=== PATIENT | male | born 1965 | race Caucasian/White ===

== ENCOUNTER 2016-10-14 20:53 | Observation (INO) ==
--- NOTE | 2016-10-14 21:41 | Emergency Department Note ---
Arrival - Arrival Chief Complaint: Eye Stated Complaint: blurred vision ED Nursing Triage Note: Patient to triage c/o blurried vision. He states he was driving to work when his vision became blurry.He states he almost couldn't see at all. Mode of Arrival: Ambulatory Limitations: No Limitations Source: Patient Time Seen by Provider: 10/14/16 21:37 - History of Present Illness HPI Narrative: This 51-year-old white male presents with complaints of development of blurry vision in the left eye while driving and progressive loss of visits to [facility]. He currently states that he is now having return of site only blurry. He denies any headache, chest pain, shortness of breath, nausea, vomiting, history of hypertension, history of diabetes, slurring of speech, focal deficits, nausea, or vomiting. The patient currently appears in no acute medical distress. Onset (ago): minute(s) (Patient presents 30 minutes post onset of symptoms) Allergies/Adverse Reactions: Allergies Allergy/AdvReac Type Severity Reaction Status Date / Time Sulfa (Sulfonamide Allergy SHORTNESS Verified 10/14/16 20:59 Antibiotics) OF BREATH sulfamethoxazole Allergy SHORTNESS Verified 10/14/16 20:59 [From Bactrim] OF BREATH trimethoprim [From Bactrim] Allergy SHORTNESS Verified 10/14/16 20:59 OF BREATH Home Medications: Home Medications Medication Instructions Recorded Confirmed Type No Known Home Medications [No 12/16/14 10/14/16 History Known Home Medications] Review of System - Review of System 12 point system: reviewed and no additional remarkable complaints except as stated - Review of System Constitutional: Present: as per HPI Eyes: Present: as per HPI Respiratory: Present: as per HPI Cardiovascular: Present: as per HPI Gastrointestinal: Present: as per HPI Neurological: Present: as per HPI Medical,Surgical,& Family Hx - Social History Smoking Status: Current every day smoker Frequency of Alcohol Use: None Type of Drug Use: None Exam Physical Examination: GENERAL: Well developed, well nourished white male in no acute distress. HEENT: Normocephalic. No trauma. Moist mucous membranes. EOMI. PERRLA. No visual field loss even with the left eye, fundi benign ENT NML NECK: Supple. No adenopathy. CARDIAC: Regular. No murmurs. Heart rate 58 CHEST: Clear to auscultation. No respiratory distress. O2 sat 97% ABDOMEN: Soft. Nontender. Active bowel sounds. EXTREMITIES: No trauma. Normal ROM. No pedal edema. SKIN: No diaphoresis. No rash. NEURO: Alert. Oriented 3. Motor, sensory, vibratory intact. No focal deficits. Vital Signs: Vital Signs Temperature 98.6 F 10/14/16 20:55 Pulse Rate 58 L 10/14/16 20:55 Respiratory Rate 18 10/14/16 20:55 Blood Pressure 122/76 10/14/16 20:55 O2 Sat by Pulse Oximetry 97 10/14/16 20:55 Course Course Narrative: After completion of workup the patient stated his vision was back to normal however after discussion with Dr. Manzanares we will be keeping the patient for evaluation. - Consultations Consultation #1: Discussed with Dr. Manzanares who felt the most medically safe avenue was to admit for further workup. Consultation #2: Discussed with hospitalist who will admit for further evaluation treatment. Results - Labs CBC & BMP: 10/14/16 21:44 10/14/16 21:44 Labs: I reviewed the lab and noted the normal results - Diagnostic Findings Procedure: Chest x-ray: image reviewed by me, report reviewed by me (No acute disease), CT: image reviewed by me, report reviewed by me (Head: No acute injury ) Disposition Clinical Impression: Amaurosis fugax Case discussed with: patient Disposition: Still a Patient Condition: Guarded Time of Disposition: 22:32
[2016-10-14 21:53] LABS: Basophils # 0.1 10*3/uL (0.0-0.2); Basophils % 0.6 % (0.0-0.8); Eosinophils # 0.1 10*3/uL (0.0-0.87); Eosinophils % 1.6 % (0.00-10.9); Hematocrit 45.2 VOL% (42.0-52.0); Hemoglobin 15.8 GM/DL (14.0-18.0); Immature Granulocytes % 0.5 %; Immature Granulocytes Absolute 0.04 #; Lymphocytes # 3.8 10*3/uL (1.4-4.0); Lymphocytes % 42.6 % (21.2-54.2); Mean Corpuscular Hemoglobin 30 PG (27-34); Mean Corpuscular Volume 86.3 FL (87-102); Mean Platelet Volume 10.6 FL (9.6-12.0); Monocytes # 0.6 10*3/uL (0.11-0.8); Monocytes % 7.2 % (1.7-12.7); Neutrophils # 4.2 10*3/uL (1.4-7.4); Neutrophils % 47.5 % (38.7-73.9); Platelet Count 171 T/CUMM (130-400); Red Blood Count 5.24 MC/CUMM (3.8-5.5); Red Cell Distribution Width 13.1 % (9.3-17.3); White Blood Count 8.9 T/CUMM (4-12)
--- NOTE | 2016-10-14 22:07 | XRay Report ---
History is altered mental status Chest, 2 views The heart is normal in size. The lungs are clear. Impression: No acute pathology seen. PROCEDURE INTERPRETED AT [facility] DEPARTMENT OF RADIOLOGY Final Report Signed by: Dr. Jennifer Leyva
--- NOTE | 2016-10-14 22:07 | CT Report ---
History is mental status changes The ventricles are normal in size No acute intracranial hemorrhage or mass effect seen. No acute cortical stroke seen. There may be some minimal chronic encephalomalacia near the sylvian fissure on the left Impression: No acute intracranial pathology seen The CT exam was performed using one or more of the following dose reduction techniques: Automated exposure control, adjustment of the mA and/or kV according to patient size, or use of iterative reconstruction technique. PROCEDURE INTERPRETED AT [facility] DEPARTMENT OF RADIOLOGY Final Report Signed by: Dr. Jennifer Leyva
[2016-10-14 22:13] LABS: Alanine Aminotransferase 32 U/L (16-61); Albumin 3.6 G/DL (3.4-5.0); Alkaline Phosphatase 67 U/L (45-117); Aspartate Amino Transferase 21 U/L (0-37); Blood Urea Nitrogen 19 MG/DL (7-18); Calcium 8.9 MG/DL (8.5-10.1); Glucose 102 MG/DL (74-106); Osmolality,Calculated 280.4 MOS/KG (273-304); Potassium 3.5 MMOL/L (3.5-5.1); Sodium 140 MMOL/L (136-145); Total Protein 6.8 G/DL (6.4-8.3); Troponin I Only < 0.015 NG/ML (0.00-0.045)
[2016-10-14 22:18] LABS: PT Patient Result 10.8 SECS; Partial Thromboplastin Time 30.8 SECS (0-40)
[2016-10-14] MEDS ORDERED: ONDANSETRON 4 MG/2 ML VIAL IV PRN (22:53)
[2016-10-14] MEDS ORDERED: LABETALOL 20 MG/4 ML SYRINGE IV PRN (22:53)
--- NOTE | 2016-10-14 23:02 | Hospitalist History & Physical ---
Assessment and Plan (1) Amaurosis fugax of left eye Status: Acute Assessment and plan: Case is already been discussed with Dr. Ceci Kunz. We are going to order an MRI of his brain a 2D echo and a carotid ultrasound. Will check a fasting lipid profile and draw serial cardiac enzymes. His EKG did have some early re- pole. He will be placed on a monitor. Patient has no chest pain no shortness of breath no diaphoresis Current Visit: Yes History of Present Illness Chief complaint: Temporary vision loss in left eye History of present illness: Mr. Matson is a 51 year old male with no significant past medical history was in his normal state of health until today. Patient was on his way driving to work. Noticed that he had blurry vision involving his left eye. He did not lose complete vision in this eye. The vision return in 6-7 minutes. His brought him up to our hospital for further evaluation I was consulted to admission. The case was discussed with Dr. Leighton schaefer. He has agreed to see him in the morning. Home Medications Medication Instructions Recorded Confirmed Type No Known Home Medications [No 12/16/14 10/14/16 History Known Home Medications] Allergies Allergy/AdvReac Type Severity Reaction Status Date / Time Sulfa (Sulfonamide Allergy SHORTNESS Verified 10/14/16 20:59 Antibiotics) OF BREATH sulfamethoxazole Allergy SHORTNESS Verified 10/14/16 20:59 [From Bactrim] OF BREATH trimethoprim [From Bactrim] Allergy SHORTNESS Verified 10/14/16 20:59 OF BREATH Medical,Surgical,& Family Hx - Medical History Medical History: noncontributory (none) - Surgical History Surgical History: noncontributory (none) - Family History Family History: Reports;: Family Cancer, Family Diabetes, Family Heart Disease, Family Hematology - Social History Smoking Status: Current every day smoker Frequency of Alcohol Use: None Type of Drug Use: None 12 point system: reviewed and no additional remarkable complaints except as stated Exam - Constitutional Vitals: Period Temp Pulse Resp BP Sys/Garcia Pulse Ox Last 24 Hr 98.6 F 58 18 122/76 97 General appearance: normal weight - Head Head exam: Present: normal inspection - Eye Eye exam: Present: EOMI Pupils: Present: CARRIE - ENT ENT exam: Present: normal exam - Neck Neck exam: Present: normal inspection - Respiratory Respiratory exam: Present: clear to auscultation bilaterally - Cardiovascular Cardiovascular exam: Present: regular rate and rhythm - GI/Abdominal GI/Abdominal exam: Present: normal bowel sounds - Extremities Exam Extremities exam: Present: normal inspection - Back Exam Back exam: Present: normal inspection - Neurological Exam Neurological exam: Present: alert, oriented X3 - Psychiatric Psychiatric exam: Present: normal affect, normal mood - Skin Skin exam: Present: normal color Results - Labs CBC & BMP: 10/14/16 21:44 10/14/16 21:44
[2016-10-15] MEDS: ASPIRIN EC 81 MG TABLET PO SCH ×2 (00:50→09:17)
[2016-10-15] MEDS: ENOXAPARIN 40 MG/0.4 ML SYRINGE SUBCUT SCH ×2 (00:50→20:23)
[2016-10-15 01:34] LABS: Risk Ratio 4.45; VLDL CHOLESTEROL 51.8 MG/DL
--- NOTE | 2016-10-15 05:08 | EKG Report ---
Stationary ECG Study [facility] Test Date: 10/14/2016 10:39:07 PM Pat Name: MOHAMUD PORTILLO Department: Room: 524 Gender: M Insight Leader: EVE : 1965 Requested by: Juan Suarez Order Number: [id number] Reading MD: COREY IVORY Intervals [place] Rate: 46 P: 73 MD: 179 QRS: 79 QRSD: 92 T: 69 QT: 414 QTc: 374 Interpretive Statements SINUS BRADYCARDIA ABN ST-T SUGGEST PRECORDIAL PAIN Electronically Signed On 10-15-16 16:10:57 CDT by COREY IVORY [email or web address]
--- NOTE | 2016-10-15 07:52 | Ultrasound Report ---
US carotid duplex BI Indication: Temporary vision loss. Comparison: None. Technique: Multiple longitudinal and transverse real-time sonographic images of the bilateral carotid arterial systems are obtained with grayscale, spectral, and color Doppler analysis. Findings: Peak systolic velocities within the right CCA, proximal ICA, and distal ICA are 76, 53, and 48 cm/s respectively. Peak systolic velocities within the left CCA, proximal ICA, and distal ICA are 70, 46, and 73 cm/s respectively. ICA/CCA ratios on the right and left are 0.7 and 1.0 respectively. Antegrade flow demonstrated within the bilateral vertebral arteries. Grayscale imaging demonstrates minimal bilateral atherosclerotic plaque. IMPRESSION: No convincing sonographic evidence of significant (50% or greater) narrowing of either cervical internal carotid artery. Indirect NASCET criteria utilized. PROCEDURE INTERPRETED AT [facility] DEPARTMENT OF RADIOLOGY Final Report Signed by: Dr Lex Cooper
--- NOTE | 2016-10-15 08:53 | EKG Report ---
Stationary ECG Study [facility] Test Date: 10/15/2016 8:28:48 AM Pat Name: MOHAMUD PORTILLO Department: Room: 524 Gender: M Brick Mason: DAPHNE : 1965 Requested by: Constantino Bah Order Number: [id number] Jeaneth MD: COREY IVORY Intervals [place] Rate: 44 P: 67 UT: 183 QRS: 68 QRSD: 99 T: 65 QT: 442 QTc: 394 Interpretive Statements SINUS BRADYCARDIA ST ELEVATION, PROBABLY EARLY REPOLARIZATION INTERPRETATION BASED ON A DEFAULT AGE OF 40 YEARS Electronically Signed On 10-15-16 16:13:13 CDT by COREY IVORY [email or web address]
[2016-10-15] MEDS: PANTOPRAZOLE 40 MG TABLET PO SCH (09:17)
[2016-10-15] MEDS: NICOTINE 21 MG/24 HR PATCH TRANSDERM SCH (09:24)
--- NOTE | 2016-10-15 10:57 | Cardiology Consult Note ---
Assessment and Plan - Time spent with patient Time spent with patient: Greater than 30 minutes Time spent discussing smoking cessation with patient: more than 10 minutes (1) Bradycardia Status: Acute Assessment and plan: See plan of care listed below Current Visit: Yes (2) Tobacco abuse Status: Chronic Assessment and plan: See plan of care listed below Current Visit: Yes (3) Amaurosis fugax of left eye Status: Acute Assessment and plan: See plan of care listed below. Current Visit: Yes History of Present Illness - Data of Consult Patient: new to practice Consult date: 10/15/16 Requesting Physician: Constantino Bah Primary care physician: Haley Ortiz - Consult Narrative Reason for consult: bradycardia History of present illness: REFINER OPERATOR: (NEW) DR. BUNN Mr. Matson, 51WM, not previously followed by cardiology. Risk factors include: Tobaccoism. He denies a prior history of hypertension, dyslipidemia, known coronary artery disease, [place]. Mr. Matson presented to the emergency department at [facility] October 14, 2016 after experiencing left eye blurriness, vision changes intermittently. Particularly: When trying to call his MOM on his cell phone, he could only see the letter "O". He tells me he could not see either "M " at all. This lasted approximately 10 minutes and resolved. He has had some mild blurriness during the evening but none this morning. Dr. Manzanares has been consulted. He denies any other symptoms of TIA including hemiparesis, paralysis dysphasia or dysphagia. CT head reveals no acute event. Carotid ultrasound reveals no evidence of significant stenosis. Cardiology was consulted for bradycardia. During the hospital stay, patient has had heart rates ranging from 44 - 58bpm. Around midnight, after he received IV labetalol, his heart rate was noted to be sinus bradycardia 40 bpm per scanned and telemetry strip. EKG reveals early repolarization. Cardiac biomarkers negative. He denies chest pain, heaviness or tightness. He denies shortness of breath. He works at [employer] at [employer] and tells me he can perform these activities without previously mentioned symptoms of angina. He denies a history of hypertension but he does not routinely follow up with a primary care provider. He does not check his blood pressure intermittently. During this hospital stay, his blood pressure has ranged 96-149/46-84. He does not routinely have dizziness, lightheadedness. He occasionally feels a brief heart "flutter". Echocardiogram has been ordered. Crestor, Aspirin has been initiated. (Total cholesterol 147, triglycerides 259, LDL 79, HDL 33.) I will keep patient NPO as he has already had breakfast this morning. I have discussed with Dr. Bunn. I will keep him NPO and order Cardiolite stress testing this morning to evaluate chronotropic response. Per Dr. Bunn, I will also consult ophthalmology for their input. I have discussed this with the family and we will proceed. He may also be a candidate for event monitor at discharge. Dr. Bunn will interpret he is echocardiogram. Will await additional recommendations from Dr. Bunn. ASSESSMENT/PLAN: 1. LEFT EYE VISION CHANGES CONCERNING FOR TIA - Dr. Manzanares has been consulted. ASA, Crestor initiated. 2. SINUS BRADYCARDIA - will continue to follow his telemetry readings, vital signs. See above. 3. TOBACCOISM - greater than 5 minutes was spent today discussing the merits of tobacco cessation. He is wearing nicotine patch. CC: Any Moy MD - Home Medications and Allergies Home Medications: Home Medications Medication Instructions Recorded Confirmed Type No Known Home Medications [No 12/16/14 10/14/16 History Known Home Medications] Allergies/Adverse Reactions: Allergies Allergy/AdvReac Type Severity Reaction Status Date / Time Sulfa (Sulfonamide Allergy SHORTNESS Verified 10/14/16 20:59 Antibiotics) OF BREATH sulfamethoxazole Allergy SHORTNESS Verified 10/14/16 20:59 [From Bactrim] OF BREATH trimethoprim [From Bactrim] Allergy SHORTNESS Verified 10/14/16 20:59 OF BREATH Review of systems: REVIEW OF SYSTEMS: - Constitutional Constitutional: Absent: syncope, anorexia, night sweats - EENT Eyes: Absent: blurry vision, loss of vision, diplopia Ears: Absent: decreased hearing, ear pain, ear discharge - Cardiovascular Cardiovascular: Present: chest pain with exertion, dyspnea on exertion, edema, palpitations. Absent: chest pain with deep breath, claudication, - Respiratory Respiratory: Present: BASHIR, cough. Absent: wheezing, hemoptysis, change in phlegm color - Gastrointestinal Gastrointestinal: Present: constipation. Absent: adbominal pain, hematemesis , hematochezia, melena, change in bowel habits, nausea - Genitourinary Genitourinary: Absent: difficulty urinating, dysuria, urinary hesitancy, flank pain - Musculoskeletal Musculoskeletal: Present: back pain Absent: joint swelling, muscle cramps, muscle weakness - Neurological Neurological: Present: normal gait without frequent falls. Absent: dizziness, hemiparesis - Psychiatric Psychiatric: Absent: anxiety, depression, difficulty concentrating - Endocrine Endocrine: Present: fatigue. Absent: cold intolerance, heat intolerance, polyuria, polyphagia, polydipsia - Hematologic/Lymphatic Hematologic/Lymphatic: Present: easy bruising. Absent: easy bleeding, easy bruisability -Integumentary Integumentary: Absent: lesions, rashes, skin breakdown Medical,Surgical,& Family Hx - Medical History Cardio: No history of: Cardiac Dysrhythmia, CAD, Hypertension, [place], Cardiovascular Problems HEENT: History of: Eye Problem (WEARS GLASSES) Musculoskeletal: No history of: Amputation - Surgical History Thoracic Surgeries: Patient denies;: Organ Transplant, Lobectomy Neurologic Surgeries: Patient denies: Neurologic Surgery Reproductive Surgeries: Patient denies;: Genitourinary Surgery - Family History Family History: Reports;: Family Cancer, Family Diabetes, Family Heart Disease, Family Hematology Denies;: Family Anesthesia Reaction - Social History Smoking Status: Current every day smoker Have you smoked in the last 12 months: Yes Time spent discussing smoking cessation with patient: more than 10 minutes Frequency of Alcohol Use: None Type of Drug Use: None Marital Status: Lives With:: Spouse Functional capacity: independent ambulation Physical Examination Vital Signs Temp Pulse Resp BP Pulse Ox 98.6 F 58 L 18 122/76 97 10/14/16 20:55 10/14/16 20:55 10/14/16 20:55 10/14/16 20:55 10/14/16 20:55 General: [Appears well with no apparent distress.] [Pleasant and cooperative. ] [Appears comfortable.] HEENT: [PERRL, normocephalic, atraumatic. Mucous membranes moist. No jaundice noted. Conjunctiva moist and clear, sclerae anicteric] Neck: No JVD/HJR, no thyromegaly or lymphadenopathy noted. No carotid bruit appreciated Cardiac: [Regular rate and rhythm.] [No obvious murmur, rub or gallop.] Lungs: [Clear to auscultation without accessory muscle use to assist the respiratory pattern.] Not requiring oxygen. Abdomen: Soft, bowel sounds normoactive. Nontender and nondistended. No abdominal bruit or thrill noted. No masses noted. Musculoskeletal: No fluid collection. Decreased range of motion is noted. Extremities: No clubbing, cyanosis noted. [ No edema noted.] Upper extremity pulses 2+. Lower extremity pulses 2+. Capillary refill less than 3 seconds. Skin: No unusual lesions or rashes. No skin breakdown appreciated. Neuro: Awake, alert and oriented 3. Moves all extremities well without hemiparesis or paralysis. No essential tremor is appreciated. Result/EKG - Labs CBC & BMP: 10/14/16 21:44 10/14/16 21:44 Lab Results: I have reviewed the past 24 hour labs Labs: Laboratory Results - last 24 hr 10/14/16 10/14/16 10/14/16 21:30 21:44 21:44 WBC 8.9 RBC 5.24 Hgb 15.8 Hct 45.2 MCV 86.3 L MCH 30 MCHC 35.0 RDW 13.1 Plt Count 171 MPV 10.6 Neut % (Auto) 47.5 Lymph % (Auto) 42.6 Snyder % (Auto) 7.2 Eos % (Auto) 1.6 Baso % (Auto) 0.6 Neut # (Auto) 4.2 Lymph # (Auto) 3.8 Snyder # (Auto) 0.6 Eos # (Auto) 0.1 Baso # (Auto) 0.1 Immature Gran % 0.5 Nucleated RBC % 0.0 Immature Gran # 0.04 Nucleated RBCs # 0.00 INR 1.0 PT Patient/Control Mix 10.8 Circ Anticoag PTT 30.8 Sodium Potassium Chloride Carbon Dioxide Anion Gap BUN Creatinine GFR Calculation BUN/Creatinine Ratio Glucose POC Glucose 99 Calculated Osmolality Calcium Total Bilirubin AST ALT Alkaline Phosphatase Total Creatine Kinase CK-MB (CK-2) Troponin I Total Protein Albumin Globulin Albumin/Globulin Ratio Triglycerides Cholesterol LDL Cholesterol VLDL Cholesterol HDL Cholesterol Heart Disease Risk Ratio 10/14/16 10/15/16 10/15/16 21:44 00:22 00:22 WBC RBC Hgb Hct MCV MCH MCHC RDW Plt Count MPV Neut % (Auto) Lymph % (Auto) Snyder % (Auto) Eos % (Auto) Baso % (Auto) Neut # (Auto) Lymph # (Auto) Snyder # (Auto) Eos # (Auto) Baso # (Auto) Immature Gran % Nucleated RBC % Immature Gran # Nucleated RBCs # INR PT Patient/Control Mix Circ Anticoag PTT Sodium 140 Potassium 3.5 Chloride 106 Carbon Dioxide 24 Anion Gap 13.5 BUN 19 H Creatinine 1.00 GFR Calculation 97 BUN/Creatinine Ratio 19.00 Glucose 102 POC Glucose Calculated Osmolality 280.4 Calcium 8.9 Total Bilirubin 0.40 AST 21 ALT 32 Alkaline Phosphatase 67 Total Creatine Kinase 141 CK-MB (CK-2) < 1.0 Troponin I < 0.015 < 0.015 Total Protein 6.8 Albumin 3.6 Globulin 3.2 Albumin/Globulin Ratio 1.1 Triglycerides 259 H Cholesterol 147 LDL Cholesterol 79.0 VLDL Cholesterol 51.8 HDL Cholesterol 33 L Heart Disease Risk Ratio 4.45 10/15/16 06:25 WBC RBC Hgb Hct MCV MCH MCHC RDW Plt Count MPV Neut % (Auto) Lymph % (Auto) Snyder % (Auto) Eos % (Auto) Baso % (Auto) Neut # (Auto) Lymph # (Auto) Snyder # (Auto) Eos # (Auto) Baso # (Auto) Immature Gran % Nucleated RBC % Immature Gran # Nucleated RBCs # INR PT Patient/Control Mix Circ Anticoag PTT Sodium Potassium Chloride Carbon Dioxide Anion Gap BUN Creatinine GFR Calculation BUN/Creatinine Ratio Glucose POC Glucose Calculated Osmolality Calcium Total Bilirubin AST ALT Alkaline Phosphatase Total Creatine Kinase CK-MB (CK-2) Troponin I < 0.015 Total Protein Albumin Globulin Albumin/Globulin Ratio Triglycerides Cholesterol LDL Cholesterol VLDL Cholesterol HDL Cholesterol Heart Disease Risk Ratio - Diagnostic Findings Procedure: Chest x-ray: report reviewed by me, CT: report reviewed by me (Head) , Ultrasound: report reviewed by me (Carotid) - EKG EKG results: interpreted by me EKG shows: bradycardia
--- NOTE | 2016-10-15 13:43 | Magnetic Resonance Report ---
History: Temporary vision loss Date: 10/15/2016 Study: MRI brain without contrast Comparison exam: CT head October 14, 2016 The brain was imaged in 3 planes on the 1.2 Yolie open magnet without IV contrast, to include diffusion, T2, FLAIR, andT1-weighted sequences. The ventricles are midline in position without evidence of hydrocephalus. There is no Chiari I malformation. There is no gross pituitary mass. There is a small chronic area of ischemia in a left MCA distribution involving the opercular portion of the left frontal lobe, measuring up to 2.5 cm maximum diameter on the sagittal images. There is no evidence of acute ischemia on the diffusion sequence. There is no mass effect or parenchymal hemorrhage. There is no extra-axial hematoma. The superior sagittal sinus is patent. There is no gross flow abnormality in the [place] area. There is no obvious cerebellopontine angle mass. There is some minor mucosal thickening in ethmoid air cells bilaterally. Impression: No acute ischemia or acute intracranial process. Small area of chronic ischemia involving the opercular portion of the left frontal lobe. Mild chronic sinus disease PROCEDURE INTERPRETED AT [facility] DEPARTMENT OF RADIOLOGY Final Report Signed by: Dr. Elayne Hardwick
--- NOTE | 2016-10-15 15:05 | Event Note ---
Patient underwent Cardiolite stress test without difficulty. Patient achieved stage IV Alon protocol before reaching minimal predicted target heart rate. No chest pain, heaviness or tightness. Moderate dyspnea on exertion noted. No ST changes or arrhythmia noted. Now, patient is transitioning to nuclear medicine for final scan. Dr. Bunn to read, interpreted and advise. Echocardiogram was ordered earlier and has already been performed.
--- NOTE | 2016-10-15 15:19 | Hospitalist Progress Note ---
Assessment and Plan (1) Amaurosis fugax of left eye Status: Acute Assessment and plan: Will refer to ophthalmology. Aspirin. Needs to stop smoking. Cholesterol 2 high. Crestor Current Visit: Yes (2) Obstructive sleep apnea Status: Acute Assessment and plan: Consult sleep medicine. Most likely the causes of his bradycardia Current Visit: Yes (3) Abnormal EKG Status: Acute Assessment and plan: Stress test ordered Current Visit: Yes (4) Bradycardia Status: Acute Assessment and plan: Most likely due to obstructive sleep apnea Current Visit: Yes (5) Tobacco abuse Status: Chronic Assessment and plan: Nicotine patch ordered but patient keeps going down to smoke Current Visit: Yes Hospitalist: Subjective Interval history: Patient continues to leave the floor to smoke even though we have asked him not to. We offered him a nicotine patch. Dr. Manzanares has not seen him today. Dr. Bunn has seen him and it done a stress test. I told him unless he stop smoking he will have a stroke. Patient does need to see an brass buffer. Patient never goes to the doctor. Patient snores and wakes up tired. Exam - Constitutional Vitals: Period Temp Pulse Resp BP Sys/Garcia Pulse Ox Last 24 Hr 97.1 F-98.6 F 46-60 16-18 96-149/46-84 93-98 Exam: Heart Rate-[bradycardia] Lungs-[CTAB] GI-[+bs soft, NT] Ext-[no edema] Neuro [Motor 5/5], [alert and oriented times 3] psych [normal mood and affect] General [no acute distress] Results - Labs CBC & BMP: 10/14/16 21:44 10/14/16 21:44 Lab Results: I have reviewed the past 24 hour labs - EKG EKG shows: sinus rhythm (Diffuse ST segment elevation) - Diagnostic Findings Procedure: Chest x-ray: report reviewed by me (COPD), MRI: report reviewed by me (No acute stroke some chronic ischemia in the left frontal lobe), Ultrasound : report reviewed by me (Carotid ultrasound shows no significant stenosis)
--- NOTE | 2016-10-15 15:23 | ECHO Report ---
Matson Liam Exam Date: 10/15/2016 13:17 Referring Physician: Technologist: Daly Cervantes RDCS Age: 51 Ht (in): 70 Wt (lb): 168 Gender: M Exam Location: [facility] Echo Indications: Weakness, Blurred vision BP: 104 / 67 HR: 55 Rhythm: Sinus Technical Quality: Good IMPRESSIONS Normal left ventricular cavity size. Normal left ventricular wall thickness. Left ventricular ejection fraction is estimated at 55 %. The right ventricle is normal in size and function. The right atrium is normal in size. The left atrium is normal in size. Thickened mitral valve. Trace mitral valve regurgitation. Morphologically normal aortic valve without significant sclerosis or stenosis. There is no aortic regurgitation. Morphologically normal tricuspid valve. Trace to mild tricuspid valve regurgitation. Tricuspid regurgitation velocities suggest a PAP of 49 mmHg. Morphologically normal pulmonic valve without significant stenosis. There is no pulmonic regurgitation. Normal pericardium without effusion. Normal ascending aorta dimension. MEASUREMENTS (Male / Female) Normal Values 2D ECHO LV Diastolic Diameter PLAX 3.6 cm 4.2 - 5.9 / 3.9 - 5.3 cm LV Systolic Diameter PLAX 2.2 cm LV Fractional Shortening PLAX 39.0 % IVS Diastolic Thickness 0.9 cm 0.6 - 1.0 / 0.6 - 0.9 cm LVPW Diastolic Thickness 1.0 cm 0.6 - 1.0 / 0.6 - 0.9 cm RV Internal Dim ED PLAX 3.8 cm Aortic Root Diameter 3.3 cm LA Systolic Diameter LX 2.5 cm 3.0 - 4.0 / 2.7 - 3.8 cm DOPPLER TR Peak Velocity 312.0 cm/s TR Peak Gradient 38.9 mmHg FINDINGS Left Ventricle Normal left ventricular cavity size. Normal left ventricular wall thickness. Left ventricular ejection fraction is estimated at 55 %. Right Ventricle The right ventricle is normal in size and function. Right Atrium The right atrium is normal in size. Left Atrium The left atrium is normal in size. Mitral Valve Thickened mitral valve. Trace mitral valve regurgitation. Aortic Valve Morphologically normal aortic valve without significant sclerosis or stenosis. There is no aortic regurgitation. Tricuspid Valve Morphologically normal tricuspid valve. Trace to mild tricuspid valve regurgitation. Tricuspid regurgitation velocities suggest a PAP of 49 mmHg. Pulmonic Valve Morphologically normal pulmonic valve without significant stenosis. There is no pulmonic regurgitation. Pericardium Normal pericardium without effusion. Aorta Normal ascending aorta dimension. Jose Bunn MD (Electronically Signed) Final Date: 15 October 2016 15:22
--- NOTE | 2016-10-15 16:28 | Neurology Consult Note ---
History of Present Illness History of present illness: Mr. Matson is a 51 year old right-handed white gentleman with no significant past medical history except for smoking was in his normal state of health until yesterday. Patient was on his way driving to work. Noticed that he had blurry vision involving his left eye. Patient reported that the vision deficit was partial. When he was looking at things he was missing left visual field in the left eye. He reported that when he was trying to call his "mom" he missed the first M and could only see OM. He did not lose complete vision in this eye. The vision return in 11-12 minutes. His brought him up to our hospital for further evaluation. Patient also reported that he has been having headaches more frequently lately. Headache frequency is 4-5 a week and last for weeks. Headache has gotten worse in last 2-3 months he reported that last year he had 4 episodes characterized by blurred vision in the left eye lasted for couple of minutes and resolved completely. He never sought any medical advice back then because it did not last too long. MRI of the brain, carotid Dopplers are within normal limits. Triglycerides are high at 259. Echocardiogram revealed ejection fraction of 55%. No source of embolism seen Home Medications Medication Instructions Recorded Confirmed Type No Known Home Medications [No 12/16/14 10/14/16 History Known Home Medications] Allergies Allergy/AdvReac Type Severity Reaction Status Date / Time Sulfa (Sulfonamide Allergy SHORTNESS Verified 10/14/16 20:59 Antibiotics) OF BREATH sulfamethoxazole Allergy SHORTNESS Verified 10/14/16 20:59 [From Bactrim] OF BREATH trimethoprim [From Bactrim] Allergy SHORTNESS Verified 10/14/16 20:59 OF BREATH 12 point system: reviewed and no additional remarkable complaints except as stated Medical,Surgical,& Family Hx - Medical History Cardio: No history of: Cardiac Dysrhythmia, CAD, Hypertension, [place], Cardiovascular Problems HEENT: History of: Eye Problem (WEARS GLASSES) Musculoskeletal: No history of: Amputation - Surgical History Thoracic Surgeries: Patient denies;: Organ Transplant, Lobectomy Neurologic Surgeries: Patient denies: Neurologic Surgery Reproductive Surgeries: Patient denies;: Genitourinary Surgery - Family History Family History: Reports;: Family Cancer, Family Diabetes, Family Heart Disease, Family Hematology Denies;: Family Anesthesia Reaction - Social History Smoking Status: Current every day smoker Frequency of Alcohol Use: None Type of Drug Use: None Exam - Constitutional Vitals: Period Temp Pulse Resp BP Sys/Garcia Pulse Ox Last 24 Hr 97.1 F-98.6 F 46-60 16-18 96-149/46-84 93-98 Exam: GENERAL: Patient is in no acute distress. NECK: Neck is supple. There is no JVD. No carotid bruits present. No thyroid masses. CVS: First and second heart sounds are normal. There is no S3 present. Regular rate and rhythm. RESPIRATORY: Lungs are clear to auscultation without any rales or rhonchi. ABDOMEN: Soft and non-tender. Bowel sounds are present. There is no hepatosplenomegaly. EXT: There is no palpable edema. Peripheral pulses are present. Skin: No rashes Central Nervous system: General: Alert, awake and Oriented x 3 Speech: Fluent Comprehension: Intact and normal Facial expressions: Normal Cranial Nerves: CN1/Olfactory: Normal CN II/ Optic: Normal, Visual Varela unreliable CN III, and : CARRIE & EOMI CN V: Normal & intact CN VII: face is symmetric CNVIII: Normal CN XI/X/XI/XII: Intact and Normal Motor: Bulk and Tone is normal. Strength in the right 5/5 Strength in the left 5/5 Sensory: Grossly intact for all the modalities of PP, LT and temp sense Reflexes: 1+ and symmetrical Cerebellar function: Normal finger to nose and heel to turner testing. Toes: Equivocal Gait: Normal heel to heel and toe to toe and tandem walk. Results - Labs CBC & BMP: 10/14/16 21:44 10/14/16 21:44 Assessment and Plan (1) Blurred vision, left eye Status: Acute Assessment and plan: Differential diagnosis included TIA versus complex ocular migraines. Agree with aspirin and Crestor. Add Elavil 25 mg p.o. in the morning Fioricet 1 tablet every 4 to every 6 as needed Okay to go home from neuro standpoint Follow-up in 4 weeks Counseled him regarding cessation of smoke Current Visit: Yes Specialty Discharge - Follow Up or Referrals Follow up with: Rey Manzanares MD [Physician] - 1 Month
[2016-10-15 16:44] LABS: Troponin I Only < 0.015 NG/ML (0.00-0.045)
--- NOTE | 2016-10-15 18:34 | Sleep Medicine Consult ---
Assessment and Plan (1) Obstructive sleep apnea Status: Acute Assessment and plan: This patient certainly could have obstructive sleep apnea though he has never been documented to have obstructive sleep apnea. He does have symptoms of snoring and is well does have symptoms of periodic limb movements. We will not be able to obtain HST tonight and anticipate discharge by tomorrow at the latest. I would recommend outpatient sleep study and this can be done after precertification to the sleep clinic. He may be a candidate for either home sleep study or in lab polysomnography dependent upon his insurance which is [facility]. Thank you for this consult and the opportunity to participate in his care. Current Visit: Yes History of Present Illness Chief complaint: Sleep apnea History of present illness: Mr. Matson is a 51 year old male admitted with transient visual disturbances in his left eye. He has been seen by both cardiology and neurology after admission by the hospitalist service. There has been concern of transient ischemic attack. He has been cleared by neurology for discharge. There is felt to be no source for embolic phenomenon. He does have a history of loud snoring but no history of witnessed apneas. He is bothered by chronic fatigue and sleepiness. His sleep is unrefreshing and associated with nocturia and discomfort and restlessness of his legs. His does describe him as a loud snore. His sleep schedule is irregular. He usually works nights at [employer] 4 nights a week. After work, he will usually get to sleep somewhere between 10 AM and 1 PM and then sleep until 6:56 PM. He may awaken 3-4 times to urinate. Once he is off, he began sleeping at night and feels more refreshed. He has never had sleep evaluation before. Home Medications Medication Instructions Recorded Confirmed Type No Known Home Medications [No 12/16/14 10/14/16 History Known Home Medications] Allergies Allergy/AdvReac Type Severity Reaction Status Date / Time Sulfa (Sulfonamide Allergy SHORTNESS Verified 10/14/16 20:59 Antibiotics) OF BREATH sulfamethoxazole Allergy SHORTNESS Verified 10/14/16 20:59 [From Bactrim] OF BREATH trimethoprim [From Bactrim] Allergy SHORTNESS Verified 10/14/16 20:59 OF BREATH Review of systems: Otherwise unremarkable from a sleep standpoint. Exam (Pulmonay) H&P - Constitutional Vitals: Period Temp Pulse Resp BP Sys/Garcia Pulse Ox Last 24 Hr 97.1 F-98.6 F 46-60 16-18 96-152/46-84 93-99 Exam: He is alert and oriented in no acute distress. Pupils equal round reactive to light and accommodation. Extraocular movements intact. Oropharynx with a class III Mallampati exam with a wide-based uvula. Neck supple without adenopathy or thyromegaly. No supraclavicular adenopathy. Chest with symmetrical breath sounds without focal wheeze, rhonchi, or rales. Cardiac exam reveals a regular rhythm without murmur or gallop. Abdomen soft nontender without palpable hepatosplenomegaly or mass. Extremities are without clubbing, cyanosis, or edema. Neurologically, he is grossly intact. He moves all extremities with good strength. Medical,Surgical,& Family Hx - Medical History Cardio: No history of: Cardiac Dysrhythmia, CAD, Hypertension, [place], Cardiovascular Problems HEENT: History of: Eye Problem (WEARS GLASSES) Musculoskeletal: No history of: Amputation - Surgical History Thoracic Surgeries: Patient denies;: Organ Transplant, Lobectomy Neurologic Surgeries: Patient denies: Neurologic Surgery Reproductive Surgeries: Patient denies;: Genitourinary Surgery - Family History Family History: Reports;: Family Cancer, Family Diabetes, Family Heart Disease, Family Hematology Denies;: Family Anesthesia Reaction - Social History Smoking Status: Current every day smoker Frequency of Alcohol Use: None Type of Drug Use: None Results - Labs CBC & BMP: 10/14/16 21:44 10/14/16 21:44 Lab Results: I have reviewed the past 24 hour labs Labs: Hematocrit is normal. Specialty Discharge - Follow Up or Referrals Follow up with: Rey Manzanares MD [Physician] - 1 Month
[2016-10-15] MEDS ORDERED: ROSUVASTATIN 20 MG TABLET PO SCH (21:00)
--- NOTE | 2016-10-16 02:37 | Nuclear Medicine Report ---
DATE: 10/15/2016 This is an exercise Cardiolite study. The patient underwent an exercise treadmill testing and walked using a modified Alon protocol for 11 minutes to a heart rate of 151, which was 89 percent of his maximal age predicted heart rate. Blood pressure response to exercise was normal. At peak exercise, the patient was given 30 mCi dose of te chnetium complex to Cardiolite. He underwent radionuclide scanning. This was compared to a rest sca n obtained prior to exercise after a 10 mCi dose technetium complex to Cardiolite. Comparing stress and rest imaging, there appeared to be decreased scan activity noted in the anterose ptal septal segments most consistent with an area of attenuation. There was patchy uptake otherwise, but no significant mismatch comparing rest and stress imaging could be identified. This is a poor q uality scan, but is low risk for evidence of underlying ischemic disease. Gated study demonstrates normal left ventricular systolic wall motion with gated ejection fraction ca lculated into the 54 percent range. CONCLUSIONS: 1. POOR QUALITY STUDY WITH PATCHY UPTAKE IN RADIOTRACER, BUT NO GOOD EVIDENCE TO SUGGEST SIGNIFICANT ISCHEMIA OR SCAR IN THIS LOW RISK STUDY AT NEAR MAX EXERCISE. 2. NORMAL LEFT VENTRICULAR SYSTOLIC WALL MOTION. 3. GATED EJECTION FRACTION 54 PERCENT. Procedure performed and interpreted at [facility] Department of Radiology.
[2016-10-16] MEDS ORDERED: AMITRIPTYLINE 25 MG TABLET PO SCH (09:00)
[2016-10-16] MEDS: ASPIRIN EC 81 MG TABLET PO SCH (09:12)
[2016-10-16] MEDS: NICOTINE 21 MG/24 HR PATCH TRANSDERM SCH (09:12)
[2016-10-16] MEDS: PANTOPRAZOLE 40 MG TABLET PO SCH (09:12)
--- NOTE | 2016-10-16 11:01 | Discharge Summary ---
Hospital Course - Hospital Course Hospital Course: 51-year-old male with with no past medical history because he never goes to the doctor presents to the emergency room with blurry vision in his left eye. He does not lose complete vision in this left eye but does lose peripheral vision in it comes and goes. Patient is a smoker and is not on aspirin. Patient also was noted during admission to be bradycardic but asymptomatic. Dr. Garcia was consulted and feels the patient could have obstructive sleep apnea and does need an outpatient sleep study. We were most concerned the patient may be having strokes. Patient has not been to see an underwriting technician and we will set him up to see Dr. Tino Rosen for a detailed exam of his eyes. Dr. Manzanares was consulted. MRI was done and shows no evidence of acute stroke but does have small areas of chronic ischemia in the left frontal lobe. Patient smokes up to 3 packs a day and I have counseled him that he has to stop smoking, but doubt he will comply. He did okay for me to give him some nicotine patches. Ultrasound of his carotid shows no significant stenosis. Cardiology, Dr. Bunn was consulted regarding his bradycardia and a stress test was performed which showed no evidence of ischemia. Total cholesterol is 147, triglycerides 259, LDL 79, HDL 33. Patient's serial troponins were negative. Patient will be discharged home today with follow-up appointments for Dr. Garcia, Dr. Rosen from ophthalmology and Dr. Manzanares from neurology. Patient needs to get a primary care physician. - Time spent with patient Time with patient DS: Less than 30 minutes (25 min) Diagnosis - Discharge Diagnosis (1) Amaurosis fugax of left eye Status: Acute (2) Obstructive sleep apnea Status: Acute (3) Abnormal EKG Status: Acute (4) Bradycardia Status: Acute (5) Tobacco abuse Status: Chronic Specialty Discharge - Follow Up or Referrals Follow up with: Rey Manzanares MD [Physician] - 1 Month (left message to call me back) Discharge Plan - Discharge Data Disposition: Disch To Home/Self Care Condition at Discharge: Stable Discharge Diet: heart healthy Activity: resume usual activities as tolerated Hygiene: no restrictions Weight Bearing at Discharge: full weight bearing Driving: no restrictions - Discharge Medications New Amitriptyline [Elavil] 25 mg PO DAILY #30 tablet Atorvastatin [Lipitor] 20 mg PO BEDTIME #30 tablet Nicotine 21 mg/24 Hr Patch [Nicoderm CQ 21 mg/24 hr Patch] 1 patch TRANSDERM DAILY #42 patch Aspirin EC Tab 81 mg PO DAILY tablet No Action No Known Home Medications [No Known Home Medications] - Follow Up or Referral Follow Up: Rey Manzanares MD [Physician] - 1 Month (left message to call me back) Tino Rosen MD [Physician] - 1 Week Gladys Garcia MD [Physician] - 2 Weeks - Forms/Instructions Instructions: Sleep Apnea Syndrome (DC), How to Stop Smoking (DC), Cigarette Smoking and Your Health (GEN), Bradycardia (DC) Additional Discharge Instructions: needs a primary MD or WORKERS' COMPENSATION CLAIMS EXAMINER Exam - Constitutional Vitals: Period Temp Pulse Resp BP Sys/Garcia Pulse Ox Last 24 Hr 97.2 F-98.3 F 43-61 18-20 110-152/71-82 96-100 General appearance: normal weight, no acute distress - Respiratory Respiratory exam: Present: clear to auscultation bilaterally. Absent: rhonchi, wheezes - Cardiovascular Cardiovascular exam: Present: regular rate and rhythm. Absent: systolic murmur - GI/Abdominal GI/Abdominal exam: Present: normal bowel sounds, soft. Absent: tenderness - Extremities Exam Extremities exam: Present: normal inspection, normal capillary refill - Neurological Exam Neurological exam: Present: alert, oriented X3 - Psychiatric Psychiatric exam: Present: normal affect, normal mood Discharge Results Labs on day of discharge: Labs from last 24 hours 10/15/16 15:29 Total Creatine Kinase 116 CK-MB (CK-2) < 1.0 Troponin I < 0.015 DS: Provider Date of admission: 10/14/16 22:53 Primary care physician: . No PCP Attending physician on admission: Constantino Bah MD Consults: 10/14/16 22:53 Consult to Physician [CONS] Routine Comment: case discussed with him last night Consulting Provider: Rey Manzanares When should Consulting Provider be notified: In am Person Notified: Bernadette Date Notified: 10/15/16 Time Notified: 09:03 10/15/16 06:11 Consult to Physician [CONS] Routine Comment: BRADYCARDIA Consulting Provider: Chao Moncada Person Notified: Myles Date Notified: 10/15/16 Time Notified: 08:39 10/15/16 10:37 Consult to Sleep Center [CONS] Routine Reason for Sleep Center: Sleep Center Physician Consult Comment: snoring and bradycardia 10/15/16 14:37 Consult to Physician [CONS] Routine Comment: Consulting Provider: Constantino Aceves Date Notified: 10/15/16 Time Notified: 14:42 Consult Notification Comment: call the office left vm to call me back Discharging clinician: Any Moy MD
--- NOTE | 2016-10-16 11:14 | Cardiology Progress Note ---
Harlan Rubio Vanessa, RN, am scribing for, and in the presence of, Jose Bunn MD 11:14. Assessment and Plan - Time spent with patient Time spent with patient: Greater than 30 minutes (1) Bradycardia Status: Acute Current Visit: Yes (2) Amaurosis fugax of left eye Status: Acute Current Visit: Yes (3) Obstructive sleep apnea Status: Acute Current Visit: Yes (4) Tobacco abuse Status: Chronic Current Visit: Yes Cardiology - PN: Subj Interval history: PUBLIC TRANSPORTATION INSPECTOR: (PIPO) DR. BUNN SUMMARY: Mr. Matson is a 51-year-old white male with risk factors including: Tobacco use. Patient denied a prior history of hypertension, dyslipidemia, known personal or family history of CAD. He presented to [facility] ER on October 14 after he experienced some left eye blurriness and intermittent vision changes. He reported while he was trying to call his mom using his cell phone and could only see the letter "O". This episode lasted for about 10 minutes and resolve spontaneously. He denied TIA symptoms. Carotid ultrasound negative for significant carotid artery stenosis, and CT head revealed no acute event. Dr. Manzanares has been consulted for neurological evaluation. While being observed in the hospital, patient has had heart rates ranging from 40-58 bpm. Cardiology was asked to see for bradycardia. Cardiolite stress testing performed yesterday afternoon to evaluate chronotropic response, and study revealed no clear evidence to suggest significant ischemia or scar, was a low risk study at near max exercise, and normal LV systolic function with EF of 54% . October: Mr. Matson Exam (Progress Note) - Constitutional Vitals: Period Temp Pulse Resp BP Sys/Garcia Pulse Ox Last 24 Hr 97.2 F-98.3 F 43-61 18-20 110-152/71-82 96-100 Exam: General: [Appears well with no apparent distress.] [Pleasant and cooperative. ] [Appears comfortable.] HEENT: [PERRL, normocephalic, atraumatic. Mucous membranes moist. No jaundice noted. Conjunctiva moist and clear, sclerae anicteric] Neck: No JVD/HJR, no thyromegaly or lymphadenopathy noted. No carotid bruit appreciated Cardiac: [Regular rate and rhythm.] [No obvious murmur, rub or gallop.] Lungs: [Clear to auscultation without accessory muscle use to assist the respiratory pattern.] Not requiring oxygen. Abdomen: Soft, bowel sounds normoactive. Nontender and nondistended. No abdominal bruit or thrill noted. No masses noted. Musculoskeletal: No fluid collection. Decreased range of motion is noted. Extremities: No clubbing, cyanosis noted. [ No edema noted.] Upper extremity pulses 2+. Lower extremity pulses 2+. Capillary refill less than 3 seconds. Skin: No unusual lesions or rashes. No skin breakdown appreciated. Neuro: Awake, alert and oriented 3. Moves all extremities well without hemiparesis or paralysis. No essential tremor is appreciated. Result/EKG - Labs CBC & BMP: 10/14/16 21:44 10/14/16 21:44 Lab Results: I have reviewed the past 24 hour labs Labs: Laboratory Results - last 24 hr 10/15/16 15:29 Total Creatine Kinase 116 CK-MB (CK-2) < 1.0 Troponin I < 0.015 - EKG EKG results: interpreted by me Specialty Discharge - Follow Up or Referrals Follow up with: Rey Manzanares MD [Physician] - 1 Month (left message to call me back) Tino Rosen MD [Physician] - 1 Week Gladys Garcia MD [Physician] - 2 Weeks Oni Rubio Wesley, MD, personally performed the services described in this documentation, ascribed by Celestina Claros RN in my presence, and it is both accurate and complete .
[2016-10-16 12:27] VITALS: BP 126/82
== END 2016-10-16 13:12 | disposition home or self-care (01) ==
LOC: N.EDINP 20:53 → N.ED 20:53 → SUATTDRO 22:53 → N.5E 23:18
PROVIDERS: ADMIT Internal Medicine; ATTEND Internal Medicine